=== PATIENT | female | born 1980 ===

== ENCOUNTER 2022-07-23 16:17 | Inpatient (IN) ==
[2022-07-23] MEDS ORDERED: ONDANSETRON 4 MG/2 ML VIAL IV PRN (20:56)
[2022-07-23] MEDS ORDERED: DOCUSATE SODIUM 100 MG CAPSULE PO PRN (20:56)
[2022-07-23] MEDS ORDERED: ACETAMINOPHEN 325 MG TABLET PO PRN (20:56)
[2022-07-23] MEDS ORDERED: ALBUTEROL 2.5 MG/3 ML NEB RESP TX PRN (20:56)
[2022-07-23 20:58] LABS: Arterial Base Excess iSTAT 6 MMOL/L (-2.5-2.5); Arterial Bicarbonate iSTAT 40.7 MMOL/L (20-26); Arterial O2 Saturation iSTAT 100 % (95-100); Arterial PCO2 iSTAT 114 MM HG (35-48); Arterial PO2 iSTAT 391 MM HG (80-95); Arterial Total CO2 iSTAT 44 MMO/L (23-27); Arterial pH iSTAT 7.162 (7.35-7.45)
[2022-07-23] MEDS: ENOXAPARIN 40 MG/0.4 ML SYRINGE SUBCUT SCH (21:43)
[2022-07-23] MEDS: guaiFENesin/DM ER 600-30 MG TABLET PO SCH (21:44)
[2022-07-23] MEDS: PANTOPRAZOLE 40 MG VIAL IV SCH (21:44)
[2022-07-23] MEDS: hydrALAZINE 20 MG/1 ML VIAL IV PRN (21:44)
[2022-07-23] MEDS: AZITHROMYCIN INJ 500 MG in SODIUM CHLORIDE 0.9% 250 ML IV SCH (21:45)
[2022-07-23] MEDS ORDERED: methylPREDNISolone SOD SUC 40 MG/1 ML VIAL IV SCH (22:00)
[2022-07-23 22:15] LABS: Arterial Base Excess iSTAT 5 MMOL/L (-2.5-2.5); Arterial Bicarbonate iSTAT 37.8 MMOL/L (20-26); Arterial O2 Saturation iSTAT 90 % (95-100); Arterial PCO2 iSTAT 99 MM HG (35-48); Arterial PO2 iSTAT 76 MM HG (80-95); Arterial Total CO2 iSTAT 41 MMO/L (23-27); Arterial pH iSTAT 7.191 (7.35-7.45)
[2022-07-24] MEDS: ALBUTEROL/IPRATROPIUM 3 ML NEB RESP TX SCH ×5 (00:07→23:45)
[2022-07-24] MEDS: CETIRIZINE 10 MG TABLET PO SCH ×2 (00:27→09:50)
[2022-07-24] MEDS: ASCORBIC ACID 500 MG TABLET PO SCH ×3 (00:27→20:49)
[2022-07-24] MEDS: CHOLECALCIFEROL 5,000 UNIT TABLET PO SCH ×2 (00:27→09:50)
[2022-07-24] MEDS: ZINC GLUCONATE 50 MG TABLET PO SCH ×2 (00:27→09:50)
[2022-07-24] MEDS: MELATONIN 3 MG TABLET PO SCH ×2 (00:27→20:49)
[2022-07-24] MEDS: OSELTAMIVIR 75 MG CAPSULE PO SCH ×2 (00:27→09:50)
[2022-07-24 03:22] LABS: Arterial Base Excess iSTAT 6 MMOL/L (-2.5-2.5); Arterial Bicarbonate iSTAT 40.3 MMOL/L (20-26); Arterial O2 Saturation iSTAT 81 % (95-100); Arterial PCO2 iSTAT 109 MM HG (35-48); Arterial PO2 iSTAT 61 MM HG (80-95); Arterial Total CO2 iSTAT 44 MMO/L (23-27); Arterial pH iSTAT 7.175 (7.35-7.45)
[2022-07-24] MEDS: hydrALAZINE 20 MG/1 ML VIAL IV PRN ×2 (04:09→13:53)
[2022-07-24 05:05] LABS: Basophils % 0.2 % (0.0-0.8); Hematocrit 48.8 VOL% (35.7-47.0); Immature Granulocytes % 1.3 %; Immature Granulocytes Absolute 0.11 #; Lymphocytes # 0.5 10*3/uL (1.4-4.0); Lymphocytes % 5.8 % (21.3-54.2); Mean Corpuscular HGB Conc 26.6 GM/DL (32-36); Mean Corpuscular Volume 87.9 FL (87-102); Mean Platelet Volume 11.7 FL (9.6-12.0); Monocytes # 0.5 10*3/uL (0.11-0.8); Monocytes % 5.4 % (1.7-12.7); NRBC # 0.07 10*3/uL; Neutrophils % 87.3 % (38.7-73.9); Platelet Count 196 T/CUMM (130-400); Red Blood Count 5.55 MC/CUMM (3.8-5.5); Red Cell Distribution Width 18.8 % (9.3-17.3); White Blood Count 8.3 T/CUMM (4-12)
[2022-07-24] MEDS ORDERED: methylPREDNISolone SOD SUC 40 MG/1 ML VIAL IV SCH (06:00)
[2022-07-24 06:25] LABS: Hypochromia 1+; Microcytosis 1+; Polychromasia Slight
[2022-07-24] MEDS ORDERED: FUROSEMIDE 40 MG/4 ML VIAL IV ONE (07:09)
[2022-07-24 09:00] LABS: Arterial Base Excess iSTAT 7 MMOL/L (-2.5-2.5); Arterial Bicarbonate iSTAT 39.9 MMOL/L (20-26); Arterial O2 Saturation iSTAT 94 % (95-100); Arterial PCO2 iSTAT 100 MM HG (35-48); Arterial PO2 iSTAT 91 MM HG (80-95); Arterial Total CO2 iSTAT 43 MMO/L (23-27)
[2022-07-24] MEDS: guaiFENesin/DM ER 600-30 MG TABLET PO SCH ×2 (09:50→20:49)
[2022-07-24 13:23] LABS: Albumin 3.6 G/DL (3.4-5.0); Bilirubin,Total 0.6 MG/DL (0.20-1.00); Calcium 8.7 MG/DL (8.5-10.1); Osmolality,Calculated 283.3 MOS/KG (273-304); Potassium 4.9 MMOL/L (3.5-5.1); Total Protein 8.3 G/DL (6.4-8.2)
[2022-07-24] MEDS: methylPREDNISolone SOD SUC 125 MG/2 ML VIAL IV SCH ×2 (13:52→20:48)
[2022-07-24] MEDS: cefTRIAXone 1,000 MG in SODIUM CHLORIDE 0.9% 100 ML IV SCH (16:32)
[2022-07-24 17:01] LABS: Arterial Base Excess iSTAT 10 MMOL/L (-2.5-2.5); Arterial Bicarbonate iSTAT 42.9 MMOL/L (20-26); Arterial O2 Saturation iSTAT 92 % (95-100); Arterial PCO2 iSTAT 100 MM HG (35-48); Arterial PO2 iSTAT 81 MM HG (80-95); Arterial Total CO2 iSTAT 46 MMO/L (23-27)
[2022-07-24] MEDS ORDERED: NICOTINE 14 MG/24 HR PATCH TRANSDERM PRN (18:12)
[2022-07-24] MEDS: amLODIPine 10 MG TABLET PO SCH (18:31)
[2022-07-24] MEDS: PANTOPRAZOLE 40 MG VIAL IV SCH (20:49)
[2022-07-24] MEDS: ENOXAPARIN 40 MG/0.4 ML SYRINGE SUBCUT SCH (20:50)
[2022-07-24] MEDS: AZITHROMYCIN INJ 500 MG in SODIUM CHLORIDE 0.9% 250 ML IV SCH (20:53)
[2022-07-25 04:07] LABS: Arterial Base Excess iSTAT 7 MMOL/L (-2.5-2.5); Arterial O2 Saturation iSTAT 91 % (95-100); Arterial PCO2 iSTAT 111 MM HG (35-48); Arterial PO2 iSTAT 81 MM HG (80-95); Arterial Total CO2 iSTAT 44 MMO/L (23-27); Arterial pH iSTAT 7.177 (7.35-7.45)
[2022-07-25] MEDS: methylPREDNISolone SOD SUC 125 MG/2 ML VIAL IV SCH ×3 (05:22→22:18)
[2022-07-25 05:36] LABS: Albumin 3.3 G/DL (3.4-5.0); Bilirubin,Total 0.6 MG/DL (0.20-1.00); Calcium 8.9 MG/DL (8.5-10.1); Total Protein 7.6 G/DL (6.4-8.2)
[2022-07-25 05:43] LABS: Potassium 4.5 MMOL/L (3.5-5.1)
[2022-07-25 05:45] LABS: Osmolality,Calculated 281.5 MOS/KG (273-304)
[2022-07-25 06:00] LABS: Basophils % 0.2 % (0.0-0.8); Hematocrit 48.6 VOL% (35.7-47.0); Hemoglobin 12.7 GM/DL (12.0-16.0); Immature Granulocytes % 1.4 %; Immature Granulocytes Absolute 0.13 #; Lymphocytes # 0.5 10*3/uL (1.4-4.0); Mean Corpuscular HGB Conc 26.1 GM/DL (32-36); Mean Corpuscular Volume 89.8 FL (87-102); Mean Platelet Volume 12.4 FL (9.6-12.0); Monocytes # 0.5 10*3/uL (0.11-0.8); NRBC # 0.04 10*3/uL; Neutrophils % 88.4 % (38.7-73.9); Platelet Count 197 T/CUMM (130-400); Red Blood Count 5.41 MC/CUMM (3.8-5.5); Red Cell Distribution Width 19.9 % (9.3-17.3)
[2022-07-25] MEDS: ALBUTEROL/IPRATROPIUM 3 ML NEB RESP TX SCH ×4 (07:10→23:34)
[2022-07-25] MEDS: hydrALAZINE 20 MG/1 ML VIAL IV PRN (07:25)
[2022-07-25] MEDS: amLODIPine 10 MG TABLET PO SCH (08:34)
[2022-07-25] MEDS: guaiFENesin/DM ER 600-30 MG TABLET PO SCH ×2 (08:34→21:03)
[2022-07-25] MEDS: THEOPHYLLINE ER (24 HR) 400 MG CAPSULE PO SCH (08:34)
[2022-07-25] MEDS: CHOLECALCIFEROL 5,000 UNIT TABLET PO SCH (08:34)
[2022-07-25] MEDS: SPIRONOLACTONE 50 MG TABLET PO SCH ×2 (08:34→21:03)
[2022-07-25] MEDS: CETIRIZINE 10 MG TABLET PO SCH (08:34)
[2022-07-25] MEDS: ASCORBIC ACID 500 MG TABLET PO SCH ×2 (08:34→21:02)
[2022-07-25] MEDS: FUROSEMIDE 40 MG/4 ML VIAL IV SCH ×2 (08:34→17:13)
[2022-07-25] MEDS: ZINC GLUCONATE 50 MG TABLET PO SCH (08:34)
[2022-07-25 15:13] LABS: Arterial Base Excess iSTAT 9 MMOL/L (-2.5-2.5); Arterial O2 Saturation iSTAT 96 % (95-100); Arterial PCO2 iSTAT 90 MM HG (35-48); Arterial PO2 iSTAT 102 MM HG (80-95); Arterial Total CO2 iSTAT 44 MMO/L (23-27); Arterial pH iSTAT 7.269 (7.35-7.45)
[2022-07-25] MEDS: cefTRIAXone 1,000 MG in SODIUM CHLORIDE 0.9% 100 ML IV SCH (17:01)
[2022-07-25] MEDS: MELATONIN 3 MG TABLET PO SCH (21:02)
[2022-07-25] MEDS: ENOXAPARIN 40 MG/0.4 ML SYRINGE SUBCUT SCH (21:03)
[2022-07-25] MEDS: PANTOPRAZOLE 40 MG VIAL IV SCH (22:15)
[2022-07-25] MEDS: AZITHROMYCIN INJ 500 MG in SODIUM CHLORIDE 0.9% 250 ML IV SCH (22:27)
[2022-07-26 03:35] LABS: Arterial Base Excess iSTAT 11 MMOL/L (-2.5-2.5); Arterial Bicarbonate iSTAT 41.8 MMOL/L (20-26); Arterial O2 Saturation iSTAT 84 % (95-100); Arterial PCO2 iSTAT 81 MM HG (35-48); Arterial PO2 iSTAT 56 MM HG (80-95); Arterial Total CO2 iSTAT 44 MMO/L (23-27); Arterial pH iSTAT 7.323 (7.35-7.45)
[2022-07-26] MEDS: methylPREDNISolone SOD SUC 125 MG/2 ML VIAL IV SCH ×3 (05:09→21:44)
[2022-07-26 06:16] LABS: Albumin 3.2 G/DL (3.4-5.0); Bilirubin,Total 0.7 MG/DL (0.20-1.00); Calcium 9.1 MG/DL (8.5-10.1); Osmolality,Calculated 281.7 MOS/KG (273-304); Potassium 4.5 MMOL/L (3.5-5.1); Total Protein 7.4 G/DL (6.4-8.2)
[2022-07-26 06:20] LABS: Basophils % 0.1 % (0.0-0.8); Hemoglobin 13.1 GM/DL (12.0-16.0); Immature Granulocytes % 0.8 %; Immature Granulocytes Absolute 0.07 #; Lymphocytes # 0.6 10*3/uL (1.4-4.0); Lymphocytes % 6.9 % (21.3-54.2); Mean Corpuscular Volume 86.8 FL (87-102); Mean Platelet Volume 11.5 FL (9.6-12.0); Monocytes # 0.4 10*3/uL (0.11-0.8); Monocytes % 4.2 % (1.7-12.7); NRBC # 0.03 10*3/uL; Platelet Count 179 T/CUMM (130-400); Red Blood Count 5.59 MC/CUMM (3.8-5.5); Red Cell Distribution Width 19.9 % (9.3-17.3)
[2022-07-26 06:25] LABS: Hematocrit 48.5 VOL% (35.7-47.0)
[2022-07-26] MEDS ORDERED: DEXTROSE 10% 250 ML BAG IV PRN (07:15)
[2022-07-26] MEDS ORDERED: GLUCAGON 1 MG VIAL IM PRN (07:15)
[2022-07-26] MEDS: ALBUTEROL/IPRATROPIUM 3 ML NEB RESP TX SCH ×3 (07:55→18:58)
[2022-07-26] MEDS: FUROSEMIDE 40 MG/4 ML VIAL IV SCH ×2 (08:28→17:03)
[2022-07-26] MEDS: THEOPHYLLINE ER (24 HR) 400 MG CAPSULE PO SCH (08:29)
[2022-07-26] MEDS: CHOLECALCIFEROL 5,000 UNIT TABLET PO SCH (08:29)
[2022-07-26] MEDS: ZINC GLUCONATE 50 MG TABLET PO SCH (08:29)
[2022-07-26] MEDS: ASCORBIC ACID 500 MG TABLET PO SCH ×2 (08:29→21:44)
[2022-07-26] MEDS: amLODIPine 10 MG TABLET PO SCH (08:29)
[2022-07-26] MEDS: guaiFENesin/DM ER 600-30 MG TABLET PO SCH (08:29)
[2022-07-26] MEDS: CETIRIZINE 10 MG TABLET PO SCH (08:29)
[2022-07-26] MEDS: SPIRONOLACTONE 50 MG TABLET PO SCH ×2 (08:29→21:45)
[2022-07-26] MEDS: INSULIN LISPRO 100 UNIT/ML SUBCUT SCH ×4 (08:30→21:45)
[2022-07-26] MEDS ORDERED: guaiFENesin/DM ER 600-30 MG TABLET PO PRN (08:51)
[2022-07-26] MEDS: LOSARTAN 25 MG TABLET PO SCH (09:45)
[2022-07-26] MEDS: AZITHROMYCIN 250 MG TABLET PO SCH (09:45)
[2022-07-26 10:56] LABS: Mycoplasma pneumoniae Ab Inter SEE COMMENTS; Mycoplasma pneumoniae Ab, IgG Positive (Negative); Mycoplasma pneumoniae Ab, IgM Negative (Negative)
[2022-07-26] MEDS: cefTRIAXone 1,000 MG in SODIUM CHLORIDE 0.9% 100 ML IV SCH (17:04)
[2022-07-26] MEDS: ENOXAPARIN 40 MG/0.4 ML SYRINGE SUBCUT SCH (21:44)
[2022-07-26] MEDS: hydrALAZINE 20 MG/1 ML VIAL IV PRN (21:47)
[2022-07-27] MEDS: ALBUTEROL/IPRATROPIUM 3 ML NEB RESP TX SCH ×4 (00:21→19:15)
[2022-07-27 03:26] LABS: Arterial Base Excess iSTAT 13 MMOL/L (-2.5-2.5); Arterial Bicarbonate iSTAT 43.7 MMOL/L (20-26); Arterial O2 Saturation iSTAT 88 % (95-100); Arterial PCO2 iSTAT 78 MM HG (35-48); Arterial PO2 iSTAT 61 MM HG (80-95); Arterial Total CO2 iSTAT 46 MMO/L (23-27)
[2022-07-27] MEDS: hydrALAZINE 20 MG/1 ML VIAL IV PRN (05:08)
[2022-07-27] MEDS: methylPREDNISolone SOD SUC 125 MG/2 ML VIAL IV SCH (05:08)
[2022-07-27 06:04] LABS: Calcium 8.8 MG/DL (8.5-10.1); Osmolality,Calculated 287.3 MOS/KG (273-304)
[2022-07-27 06:07] LABS: % Iron Saturation 10.1 % (18-50); Ferritin 21.5 ng/mL (8-252)
[2022-07-27 06:08] LABS: Risk Ratio 3.34
[2022-07-27 06:10] LABS: Basophils % 0.1 % (0.0-0.8); Immature Granulocytes % 0.6 %; Immature Granulocytes Absolute 0.06 #; Lymphocytes # 0.9 10*3/uL (1.4-4.0); Lymphocytes % 8.4 % (21.3-54.2); Mean Corpuscular HGB Conc 27.8 GM/DL (32-36); Mean Corpuscular Volume 85.5 FL (87-102); Mean Platelet Volume 11.1 FL (9.6-12.0); Monocytes # 0.6 10*3/uL (0.11-0.8); Monocytes % 5.9 % (1.7-12.7); NRBC # 0.02 10*3/uL; Platelet Count 192 T/CUMM (130-400); Red Blood Count 5.73 MC/CUMM (3.8-5.5); Red Cell Distribution Width 20.1 % (9.3-17.3); White Blood Count 10.5 T/CUMM (4-12)
[2022-07-27 06:12] LABS: Hemoglobin 13.6 GM/DL (12.0-16.0)
[2022-07-27] MEDS: LOSARTAN 25 MG TABLET PO SCH ×2 (07:08→08:01)
[2022-07-27] MEDS: amLODIPine 10 MG TABLET PO SCH ×2 (07:08→08:01)
[2022-07-27] MEDS: INSULIN LISPRO 100 UNIT/ML SUBCUT SCH ×4 (07:58→20:39)
[2022-07-27] MEDS: ASCORBIC ACID 500 MG TABLET PO SCH ×2 (08:22→20:38)
[2022-07-27] MEDS: CHOLECALCIFEROL 5,000 UNIT TABLET PO SCH (08:22)
[2022-07-27] MEDS: AZITHROMYCIN 250 MG TABLET PO SCH (08:22)
[2022-07-27] MEDS: THEOPHYLLINE ER (24 HR) 400 MG CAPSULE PO SCH (08:22)
[2022-07-27] MEDS: FUROSEMIDE 40 MG/4 ML VIAL IV SCH (08:22)
[2022-07-27] MEDS: SPIRONOLACTONE 50 MG TABLET PO SCH (08:22)
[2022-07-27] MEDS: ENOXAPARIN 40 MG/0.4 ML SYRINGE SUBCUT SCH (20:38)
[2022-07-28] MEDS: ALBUTEROL/IPRATROPIUM 3 ML NEB RESP TX SCH ×2 (00:08→07:00)
[2022-07-28 04:45] LABS: Arterial Base Excess iSTAT 9 MMOL/L (-2.5-2.5); Arterial Bicarbonate iSTAT 38.9 MMOL/L (20-26); Arterial O2 Saturation iSTAT 97 % (95-100); Arterial PCO2 iSTAT 71 MM HG (35-48); Arterial PO2 iSTAT 97 MM HG (80-95); Arterial Total CO2 iSTAT 41 MMO/L (23-27); Arterial pH iSTAT 7.348 (7.35-7.45)
[2022-07-28 06:55] LABS: Potassium 3.8 MMOL/L (3.5-5.1)
[2022-07-28 06:59] LABS: Osmolality,Calculated 282.5 MOS/KG (273-304)
[2022-07-28 07:04] LABS: Basophils % 0.2 % (0.0-0.8); Eosinophils % 0.3 % (0.00-10.9); Hematocrit 50.8 VOL% (35.7-47.0); Hemoglobin 13.8 GM/DL (12.0-16.0); Immature Granulocytes % 0.8 %; Immature Granulocytes Absolute 0.09 #; Lymphocytes # 2.6 10*3/uL (1.4-4.0); Lymphocytes % 23.4 % (21.3-54.2); Mean Corpuscular HGB Conc 27.2 GM/DL (32-36); Mean Corpuscular Volume 85.4 FL (87-102); Mean Platelet Volume 11.1 FL (9.6-12.0); Monocytes # 0.9 10*3/uL (0.11-0.8); Monocytes % 7.8 % (1.7-12.7); Neutrophils % 67.5 % (38.7-73.9); Platelet Count 192 T/CUMM (130-400); Red Blood Count 5.95 MC/CUMM (3.8-5.5); Red Cell Distribution Width 20.7 % (9.3-17.3); White Blood Count 11.2 T/CUMM (4-12)
[2022-07-28] MEDS: INSULIN LISPRO 100 UNIT/ML SUBCUT SCH ×2 (08:11→11:46)
[2022-07-28] MEDS: AZITHROMYCIN 250 MG TABLET PO SCH (08:55)
[2022-07-28] MEDS: amLODIPine 10 MG TABLET PO SCH (08:55)
[2022-07-28] MEDS: LOSARTAN 25 MG TABLET PO SCH (08:56)
[2022-07-28] MEDS: ASCORBIC ACID 500 MG TABLET PO SCH (08:57)
[2022-07-28] MEDS: CHOLECALCIFEROL 5,000 UNIT TABLET PO SCH (08:57)
[2022-07-28] MEDS: THEOPHYLLINE ER (24 HR) 400 MG CAPSULE PO SCH (08:57)
[2022-07-28] MEDS ORDERED: FUROSEMIDE 40 MG TABLET PO SCH (09:00)
[2022-07-28] MEDS ORDERED: predniSONE 20 MG TABLET PO SCH (09:00)
[2022-07-28] MEDS ORDERED: SPIRONOLACTONE 25 MG TABLET PO SCH (09:00)
[2022-07-28 14:49] VITALS: BP 166/97
== END 2022-07-28 14:30 | disposition home or self-care (01) | DRG 139 ==
LOC: SUATTDRO 19:47 → N.CC 19:47
PROVIDERS: ADMIT Internal Medicine; ATTEND Internal Medicine